=== PATIENT | female | born 1990 | race African-American/Black ===

== ENCOUNTER 2018-01-07 05:26 | Emergency (ER) | payer OTHER | END 2018-01-07 06:50 | disposition home or self-care (01) | LOC: ERS 05:26 | DX: K04.7 Periapical abscess without sinus (principal); J06.9 Acute upper respiratory infection, unspecified; K02.9 Dental caries, unspecified | CPT/HCPCS: 99282 ==

== ENCOUNTER 2018-06-25 19:24 | Emergency (ER) | payer OTHER ==
[2018-06-25] MEDS ORDERED: Ondansetron PF 4 MG/2 ML Vial ONE (20:15)
[2018-06-25 20:29] LABS: Bilirubin Negative (Negative); Blood, Urine Negative (Negative); Clarity CLEAR (Clear); Glucose, Urine (Dipstick) Negative (Negative); Leukocyte Small (Negative); Nitrite Negative (Negative); Protein, Urine (Dipstick) Negative (Neg-Trace); Specific Gravity, Urine 1.018 (1.002-1.036); pH, Urine 6.5 (5.0-9.0)
[2018-06-25 20:34] LABS: Bacteria/HPF None Seen HPF (None Seen); Hyaline Casts/LPF 0-3 HYALINE CAST LPF (0-3 Hyaline); Pathc Cast-AUWi Flag 0.29 (0-2.49); RBC/HPF 0-3 HPF (0-3); WBC/HPF 0-3 HPF (0-3)
[2018-06-25 20:36] LABS: #Basophils 0.1 thou/uL (0.0-0.2); #Eosinphils 0.1 thou/uL (0.0-0.7); #Lymphocytes 3.8 thou/uL (1.20-3.40); #Monocytes 0.7 thou/uL (0.11-0.59); #Neutrophils 4.8 thou/uL (1.40-6.50); %Basophils 1.4 % (0.0-1.0); %Eosinophils 1.3 % (0.0-10.0); %Lymphocytes 39.7 % (21.0-51.0); %Monocytes 7.5 % (0.0-10.0); Hemoglobin 10.2 g/dL (12.0-16.0); Mean Corpuscular HGB CONC 30.2 g/dL (32.0-36.0); Mean Corpuscular Hemoglobin 24.4 pg (27.0-31.0); Mean Platelet Volume 7.8 fL (7.4-10.4); Platelet Count 183 thou/uL (130-400); RBC Distribution Width 21.1 % (11.5-14.5); Red Blood Cell (RBC) Count 4.17 mill/uL (4.20-5.40); White Blood Cell (WBC) Count 9.6 thou/uL (4.8-10.8)
[2018-06-25 20:44] LABS: BHCG - Serum Negative (NEGATIVE); Pregs Control Background? CLEAR/WHITE (CLR/WHITE); Pregs Control Bar Appear? YES (CONTROL BAR)
[2018-06-25 20:58] LABS: ALT (SGPT) Less than 7 U/L (8-55); AST (SGOT) 11 U/L (5-34); Albumin 4.4 g/dL (3.5-5.0); Alkaline Phosphatase 55 U/L (40-150); Anion Gap 9 mmol/L (10-20); BUN (Urea Nitrogen) 9 mg/dL (7.0-18.7); Bilirubin, Total 0.2 mg/dL (0.2-1.2); Calc. Creatinine Clearance 0 mL/min (70-130); Calcium 9.1 mg/dL (7.8-10.44); Carbon Dioxide 26 mmol/L (22-29); Chloride 107 mmol/L (98-107); Estimated GFR-MDRD Greater than 90; Globulin 3.3 g/dL (2.4-3.5); Glucose 86 mg/dL (70-105); Lipase 155 U/L (8-78); Potassium 3.7 mmol/L (3.5-5.1); Protein, Total 7.7 g/dL (6.0-8.3); Sodium 138 mmol/L (136-145)
== END 2018-06-25 21:45 | disposition home or self-care (01) ==
LOC: ERS 19:24
DX: R11.2 Nausea with vomiting, unspecified (principal)
CPT/HCPCS: 80053; 81003; 81015; 83690; 84703; 85025; 96360; J2405

== ENCOUNTER 2020-06-14 14:59 | Emergency (ER) | payer SELFPAY ==
[2020-06-14] MEDS ORDERED: Magnesium Citrate 300 ML BOT ONE (16:46)
== END 2020-06-14 17:00 | disposition home or self-care (01) ==
LOC: ERS 14:59
DX: K59.00 Constipation, unspecified (principal)
CPT/HCPCS: 99284

== ENCOUNTER 2021-09-10 13:15 | Emergency (ER) | payer SELFPAY ==
[2021-09-10 13:45] LABS: #Basophils 0.1 thou/uL (0.0-0.2); #Lymphocytes 1.8 thou/uL (1.20-3.40); #Monocytes 0.8 thou/uL (0.11-0.59); #Neutrophils 4.5 thou/uL (1.40-6.50); %Basophils 1.2 % (0.0-1.0); %Eosinophils 0.1 % (0.0-10.0); %Lymphocytes 24.8 % (21.0-51.0); %Monocytes 11.1 % (0.0-10.0); %Neutrophils 62.8 % (42.0-75.0); Hemoglobin 10.2 g/dL (12.0-16.0); Mean Corpuscular HGB CONC 30.5 g/dL (32.0-36.0); Mean Corpuscular Hemoglobin 23.6 pg (27.0-31.0); Mean Corpuscular Volume 77.1 fL (78.0-98.0); Platelet Count 249 thou/uL (130-400); RBC Distribution Width 18.7 % (11.5-14.5); Red Blood Cell (RBC) Count 4.35 mill/uL (4.20-5.40); White Blood Cell (WBC) Count 7.2 thou/uL (4.8-10.8)
[2021-09-10] MEDS ORDERED: diphenhydrAMINE 50 MG/ML VIAL ONE (13:55)
[2021-09-10] MEDS ORDERED: Metoclopramide HCl 10 MG/2 ML VIAL ONE (13:55)
[2021-09-10] MEDS ORDERED: Ketorolac Tromethamine 30 MG/ML VIAL ONE (13:55)
[2021-09-10 14:04] LABS: ALT (SGPT) 10 U/L (8-55); AST (SGOT) 19 U/L (5-34); Albumin 3.9 g/dL (3.5-5.0); Alkaline Phosphatase 62 U/L (40-110); Anion Gap 13 mmol/L (10-20); BUN (Urea Nitrogen) 11 mg/dL (7.0-18.7); Bilirubin, Total 0.2 mg/dL (0.2-1.2); Calc. Creatinine Clearance 0 mL/min (70-130); Calcium 9.1 mg/dL (7.8-10.44); Carbon Dioxide 22 mmol/L (22-29); Chloride 104 mmol/L (98-107); Globulin 3.8 g/dL (2.4-3.5); Glucose 110 mg/dL (70-105); Potassium 3.5 mmol/L (3.5-5.1); Protein, Total 7.7 g/dL (6.0-8.3); Sodium 135 mmol/L (136-145)
[2021-09-11 15:26] LABS: SARS-CoV-2 PCR by NAA DETECTED (NotDetected)
== END 2021-09-10 15:44 | disposition home or self-care (01) ==
LOC: ERS 13:15
DX: U07.1 COVID-19 (principal); G43.909 Migraine, unspecified, not intractable, without status migrainosus
CPT/HCPCS: 80053; 85025; 96365; 96366; 96375; J1200; J1885; J2765; U0003; U0005

== ENCOUNTER 2023-01-04 07:41 | Emergency (ER) | payer OTHER, SELFPAY ==
[2023-01-04] MEDS ORDERED: Ketorolac Tromethamine 30 MG/ML VIAL ONE (08:00)
== END 2023-01-04 08:30 | disposition home or self-care (01) ==
LOC: ERS 07:41
DX: K02.9 Dental caries, unspecified (principal); K03.81 Cracked tooth
CPT/HCPCS: 96372; 99282; J1885

== ENCOUNTER 2025-07-12 10:39 | Day surgery (SDC) | payer OTHER ==
[2025-07-12] MEDS ORDERED: Acetaminophen 500 MG TAB ONE (10:48)
[2025-07-12] MEDS: Acetaminophen 500 MG TAB PO SCH (10:49)
[2025-07-12 11:04] VITALS: TEMP 97.9
[2025-07-12] MEDS: Ferumoxytol (NON ERSD) 510 MG in 0.9 % Sodium Chloride 150 ML IVPB SCH (11:32)
[2025-07-12 15:57] VITALS: BP 116/63
== END 2025-07-12 15:56 | disposition home or self-care (01) ==
LOC: ONC/OP 10:39
PROVIDERS: ATTEND Family Medicine
DX: O99.019 Anemia complicating pregnancy, unspecified trimester (principal); Z3A.00 Weeks of gestation of pregnancy not specified; Z88.5 Allergy status to narcotic agent; Z87.891 Personal history of nicotine dependence
CPT/HCPCS: 96365; 96366; Q0138